=== PATIENT | male | born 1940 | race Caucasian/White ===

== ENCOUNTER → 2018-01-08 13:28 | Outpatient (CLI) | payer MEDICARE, SELFPAY ==
--- NOTE | 2018-01-09 16:29 | DI.NM.S_ITS ---
DATE OF SERVICE: 01/08/2018 ORDERING PHYSICIAN: Vikas Mills MD PROCEDURE: Nuclear cardiac stress study. INDICATIONS: This is a 77-year-old gentleman with a remote history of coronary bypass graft surgery and chronic atrial fibrillation being considered for surgery. Nuclear cardiac stress study is performed to for cardiac risk assessment and to evaluate for significant recurrent ischemia. STRESS TEST: This gentleman was exercised according to a regular [place] protocol exercising for 2 minutes and 11 seconds stopping due to symptoms of fatigue without symptoms of chest pain or discomfort. Baseline EKG showed atrial fibrillation. He had a fairly rapid heart rate response to the atrial fibrillation with peak heart rate of 154 beats per minute and had a normal blood pressure response to exercise. He did not have significant ST segment abnormalities or anginal symptoms. Functional aerobic impairment is +65% for an active male. PROCEDURE: This patient received 25.7 mCi of technetium-99 Myoview for the stress portion of the examination. He was brought back 1 day later for the resting portion of the examination receiving an additional 26.5 mEq. FINDINGS: Raw Data: Raw data images demonstrate overall good image quality. No significant source of artifact or interference noted. Quantitative Gated SPECT Imaging: Gating was achieved but overall accuracy of the gated images is reduced because of the patient's atrial fibrillation and significant irregularity. The computer estimated end-diastolic volume is 132 cc with an estimated ejection of 48% but again the presence of atrial fibrillation and significant R-R variability reduces the specificity of this finding. Quantitative Perfusion SPECT Imaging: Stress myocardial perfusion imaging shows a moderate amount of diaphragmatic attenuation in addition to a moderate area of hypoperfusion involving the mid and distal anteroseptal wall and apex. The resting images show improvement in this region but a persistent mid anteroseptal wall perfusion abnormality and subtle apical defect remain. Prone imaging suggests a similar picture to the stress imaging and to suggest the presence of probable nontransmural infarction in the mid LAD territory and perhaps a subtle amount in the apex with a modest amount of reversible ischemia in the distal LAD territory. Prone imaging shows improvement but some persistent perfusion abnormality involving the inferior wall suggesting the possibility of a subtle degree of ischemia involving the right coronary territory as well. IMPRESSION: Abnormal nuclear cardiac stress study. A. Poor exercise capacity without anginal chest discomfort for EKG changes of ischemia. B. Suboptimal gated images because of atrial fibrillation. C. Subtle persistent perfusion abnormalities involving the mid anteroseptal wall suggesting nontransmural scar, possibly at the apex as well, with modest amount of reversible ischemia suggested in the distal left anterior descending (LAD) territory and in the distribution of the right coronary as well. Clinical correlation is suggested. Theodore Burgess - RANJEET/adelfo/ doc#: [id number]/job#: [id number] dd: 01/09/2018 13:26:00 dt: 01/09/2018 16:12:00 DICTATING MD/COPIES TO: Phil Rodriges MD COPIES MNE: MAI
== END ==
PROVIDERS: Family Provider Physician Assistant; PCP Physician Assistant; Visit Provider Internal Medicine Cardiovascular Disease
DX: I48.2 Chronic atrial fibrillation (principal); Z95.1 Presence of aortocoronary bypass graft
CPT/HCPCS: 78452; 93016; 93017; 93018; A9502

== ENCOUNTER → 2018-01-09 08:01 | Outpatient (CLI) | payer MEDICARE, SELFPAY ==
--- NOTE | 2018-01-09 | DI.ECHO.S_ITS ---
[place] [facility]---------+ [facility] +---------+ : : [address] : : : : [id number] : : : : Phone: [phone]+ Echocardiogram Report + + :Name: EUGENIA KRISHNA Study Date: 01/09/2018 Height: 73 in : :[facility] Weight: 253 lb : : Gender: Male BSA: 2.4 m2 : :: 1940 Age: 77 yrs BP: 114/62 mmHg: :Reason For Study: Atrial fibrillation : :Ordering Physician: Vikas Fernandez : :Lina Performed By: Demetria Hall : :Referring: AGUSTIN Guthrie : + + Interpretation Summary 1) Mildly enlarged left ventricle with moderately reduced function (EF 35- 40%). 2) Grossly normal right ventricular size with mildly reduced function. 3) The left atrium is moderately dilated. The right atrium is moderate to severely dilated. 4) There is mild to moderate mitral regurgitation. 5) Normal pulmonary artery pressures. 6) No prior Echo available for comparison. Procedure: A two-dimensional transthoracic echocardiogram with color flow and Doppler was performed. The study quality was technically adequate. There is no prior echocardiogram noted for this patient. The patient was in atrial fibrillation with heart rates between 83-96 bpm during the exam. Left Ventricle: The left ventricle is mildly dilated. Left ventricular wall thickness is at the upper limits of normal. The ejection fraction is estimated to be 35-40%. Left ventricular systolic function is moderately reduced. There is moderate global hypokinesis of the left ventricle. Diastolic function could not be accurately assessed due to atrial fibrillation. Right Ventricle: The right ventricle is grossly normal size. Right ventricular systolic function is mildly reduced. Atria: The left atrium is moderately dilated. The right atrium is moderate to severely dilated. The interatrial septum is intact with no evidence for an atrial septal defect. Mitral Valve: The mitral valve leaflets appear borderline thickened, but open well. There is mild to moderate mitral regurgitation. Aortic Valve: The aortic valve is trileaflet. The aortic valve opens well. There is no aortic valve stenosis. No aortic regurgitation is present. Tricuspid Valve: The tricuspid valve leaflets are thin and pliable. There is mild tricuspid regurgitation. The right ventricular systolic pressure is estimated at 25 mmHg assuming a right atrial pressure of 3 mm Hg. Pulmonic Valve: The pulmonic valve is normal in structure and function. There is no pulmonic valvular regurgitation. Great Vessels: The aortic root is normal size. The dimensions of the ascending aorta are normal. The IVC is of normal diameter and collapses greater than 50% with a sniff. This suggests a low right atrial pressure of 3 mm Hg. Pericardium/ Pleura There is no pericardial effusion. There is no pleural effusion. MMode/2D Measurements & Calculations LVIDd: 6.1 cm Ao root diam: 3.0 cm LVIDs: 4.4 cm Aortic Jxn: 2.4 cm FS: 27.3 % asc Aorta Diam: 3.5 cm EPSS: 1.4 cm Ao Arch Diam (Prox Trans): 2.5 cm IVSd: 0.93 cm LVPWd: 1.1 cm LV suggs. diameter/BSA (cm/m^2): 2.6 LV sys. diameter/BSA (cm/m^2): 1.9 LA dimension: 5.3 cm RA long axis: 6.1 cm LA A2 area: 26.6 cm2 RA area: 29.3 cm2 LA A4 area: 29.3 cm2 RA vol: 119.9 ml LA length (vol): 6.4 cm RA : 50.4 ml/m2 LA vol: 103.1 ml IVC diam: 1.7 cm LA vol index: 43.4 ml/m2 RVDd major: 5.5 cm RVD1 (basal): 3.7 cm RVD2 (mid): 3.1 cm TAPSE: 1.3 cm Doppler Measurements & Calculations Ao V2 max: 133.2 cm/sec Med Peak E' Arie: 7.6 cm/sec Ao V2 mean: 90.2 cm/sec Lat Peak E' Arie: 11.7 cm/sec Ao max P.1 mmHg MV P1/2t: 54.7 msec Ao mean P.7 mmHg MR ERO: 0.21 cm2 Ao V2 VTI: 29.0 cm TR max arie: 235.9 cm/sec MV V2 mean: 42.9 cm/sec TR max P.3 mmHg MV mean P.93 mmHg PA V2 max: 95.6 cm/sec MV V2 VTI: 17.1 cm PA V2 mean: 56.6 cm/sec PA mean P.7 mmHg PA Accel Time: 0.13 sec MV P1/2t max arie: 87.3 cm/sec MR flow rate: 83.5 cm3/sec MVA(P1/2t): 4.0 cm2 MR LOWRY radius: 0.59 cm Reading Physician:03:49 PM
== END ==
PROVIDERS: Family Provider Physician Assistant; PCP Physician Assistant; Visit Provider Internal Medicine Cardiovascular Disease
DX: I48.91 Unspecified atrial fibrillation (principal)
CPT/HCPCS: 93306

== ENCOUNTER → 2018-03-27 09:03 | Outpatient (CLI) | payer MEDICARE, SELFPAY ==
--- NOTE | 2018-03-27 | DI.RAD.S_ITS ---
PROCEDURE: XR CHEST 2V INDICATIONS: WHEEZING TECHNIQUE: 2 views of the chest were acquired. COMPARISON: [facility], , CHEST 2 VIEW, 09/25/2006, 18:10. FINDINGS: Surgical changes and devices: Sternotomy wires and surgical clips. Lungs and pleura: No pleural effusions or pneumothorax. Lungs are clear. Mediastinum: Mediastinal contours are normal. Heart size is normal. Bones and chest wall: No suspicious bony abnormalities. Soft tissues appear unremarkable. IMPRESSION: No acute disease. Dictated by: Shelton Kebede M.D. on 03/27/2018 at 10:47 Approved by: Shelton Kebede M.D. on 03/27/2018 at 10:48
== END ==
PROVIDERS: Family Provider Physician Assistant; PCP Physician Assistant; Visit Provider Physician Assistant
DX: R06.2 Wheezing (principal)
CPT/HCPCS: 71046

== ENCOUNTER 2018-04-08 16:23 | Emergency (ER) | payer MEDICARE, SELFPAY ==
[2018-04-08] VITALS (9 sets, daily range): BP systolic 107–151; BP diastolic 55–73; PULSE 105–144; RESP 16–29; TEMP 37.4–38.8; O2SAT 94–97; BMI 38.7
--- NOTE | 2018-04-08 16:29 | DI.CT.S_ITS ---
PROCEDURE: CT HEAD/BRAIN WO CON INDICATIONS: confusion TECHNIQUE: Noncontrast 4.5 mm thick angled axial sections acquired from the foramen magnum to the vertex, with coronal and sagittal reformats. For radiation dose reduction, the following was used: automated exposure control, adjustment of mA and/or kV according to patient size. COMPARISON: [facility], MR, STROKE PROTOCOL, 11/03/2011, 10:11. [facility], CT, HEAD WITHOUT CONTRAST, 11/02/2011, 17:25. FINDINGS: Image quality: Excellent. CSF spaces: Basal cisterns are patent. No extra-axial fluid collections. There is mild cerebral volume loss, with resultant ventricular and sulcal prominence. Brain: No intracranial hemorrhage, mass, or mass effect. There are small areas of cortical encephalomalacia involving the left frontal and parietal lobes consistent with prior infarcts. These are new compared to the prior studies. A focal hypodensity in the left torres radiata is redemonstrated consistent with a prior lacunar infarct. There are subcortical, periventricular and deep white matter hypodensities consistent with mild chronic small vessel ischemic changes. There is intracranial internal carotid artery atherosclerosis. Skull and face: Calvarium and visualized facial bones appear intact, without suspicious lesions. Sinuses: Visualized sinuses demonstrate a smaller fluid level in the right maxillary sinus. Mastoid air cells are clear. IMPRESSION: 1. No definite acute intracranial abnormality. 2. Small regions of encephalomalacia involving the left frontal and parietal lobes consistent with prior infarcts. These are new compared to the prior studies. 3. Mild cerebral volume loss and chronic white matter small vessel ischemic changes. 4. Smaller fluid level in the right maxillary sinus suggestive of acute sinusitis. No definite fracture of the visualized sinus james but correlation is recommended with clinical history. Dictated by: Harpreet Garza M.D. on 04/08/2018 at 16:52 Approved by: Harpreet Garza M.D. on 04/08/2018 at 16:55
--- NOTE | 2018-04-08 16:29 | DI.RAD.S_ITS ---
PROCEDURE: XR CHEST 1V INDICATIONS: fever confusion TECHNIQUE: One view of the chest was acquired. COMPARISON: [facility], CR, XR CHEST 2V, 03/27/2018, 9:05. FINDINGS: Surgical changes and devices: Postsurgical and changes are redemonstrated in the mediastinum. Lungs and pleura: No pleural effusions or pneumothorax. Lungs are clear. Mediastinum: Mediastinal contours appear unchanged. Heart size is normal. Bones and chest wall: No suspicious bony lesions. Overlying soft tissues appear unremarkable. IMPRESSION: 1. No acute cardiopulmonary disease. Dictated by: Harpreet Garza M.D. on 04/08/2018 at 16:51 Approved by: Harpreet Garza M.D. on 04/08/2018 at 16:52
[2018-04-08 16:38] LABS: Add Manual Diff / Slide Review NO; Basophils Percent Auto 0.1 % (0-2); Eosinophils Percent Auto 0.7 % (2-4); Hematocrit 43.8 % (41-53); Hemoglobin 14.7 g/dL (13.5-17.5); Lymphocytes Percent Auto 2.6 % (25-40); Mean Corpuscular HGB Conc 33.6 % (30-36); Mean Corpuscular Hemoglobin 32.4 PG (26-34); Mean Corpuscular Volume 96.6 fL (80-100); Monocytes Percent Auto 2.5 % (3-14); Neutrophils Absolute Auto 18400 /uL (3000-5900); Neutrophils Percent Auto 94.1 % (50-75); Platelet Count 236 X10^3/uL (150-400); Red Blood Cell Count 4.53 X10^6/uL (4.5-5.9); Red Cell Distribution Width 13.9 % (11.6-14.8); White Blood Cell Count 19.6 X10^3/uL (4.5-11.0)
[2018-04-08 16:40] LABS: INR 1.4 (0.9-1.3); Prothrombin Time 15.3 SECONDS (10.1-12.7)
[2018-04-08 16:42] LABS: PTT Partial Thromboplastin Tim 45 SECONDS (26.4-36.2)
[2018-04-08] MEDS: ACETAMINOPHEN 325 MG TABLET 975 MG PO (17:21)
[2018-04-08] MEDS: SODIUM CHLORIDE 0.9% 1,000 ML 200 ML IV (17:22)
[2018-04-08] MEDS: METOPROLOL TARTRATE 5 MG/5 ML INJ IV ×2 (17:28→18:57)
[2018-04-08] MEDS: levoFLOXacin 750 MG/150 ML PIGGYBACK 100 MG IV (17:28)
[2018-04-08 17:33] LABS: Lactate (Lactic Acid) 2.9 mmol/L (0.7-2.1)
[2018-04-08 17:49] LABS: Procalcitonin 3.18 ng/mL (<0.5)
--- NOTE | 2018-04-08 17:51 | DI.CT.S_ITS ---
PROCEDURE: CT ABDOMEN PELVIS W CON INDICATIONS: vomiting TECHNIQUE: After the administration of intravenous contrast, 5 mm thick sections acquired from the diaphragm to the symphysis. 5 mm coronal and sagittal reformats were acquired. For radiation dose reduction, the following was used: automated exposure control, adjustment of mA and/or kV according to patient size. COMPARISON: None. FINDINGS: Image quality: Excellent. ABDOMEN: Lung bases: Lung bases are clear. Heart size is normal. Solid organs: Liver is normal in size and enhancement. Gallbladder appears mildly wall thickened near the gallbladder neck, and may contain gallstones.. Biliary system is non dilated. Pancreas enhances normally. Spleen is normal in size and enhancement. No adrenal nodules. Kidneys demonstrate normal size and enhancement, without hydronephrosis. Peritoneum and bowel: Bowel loops demonstrate normal wall thickness and caliber. No free fluid or air. Nodes and vessels: No retroperitoneal or mesenteric adenopathy by size criteria. Aorta and inferior vena cava are normal in size. Miscellaneous: No ventral hernias. PELVIS: Genitourinary: Bladder wall thickness is normal. Miscellaneous: No inguinal hernias or adenopathy. : Diverticulosis without acute diverticulitis. Bones: No suspicious bony lesions. No vertebral body compression fractures. IMPRESSION: Gallbladder wall thickening is present near the gallbladder neck, and a abdominal ultrasound has been scheduled that no more accurately assess area. Note is made of sigmoid colonic diverticulosis without acute diverticulitis. Dictated by: Vernon Capps M.D. on 04/08/2018 at 19:43 Approved by: Vernon Capps M.D. on 04/08/2018 at 19:44
--- NOTE | 2018-04-08 18:01 | ED_ITS ---
HPI - Fever <DO Yenny Powell Last Filed: 04/09/18 07:23> General Chief Complaint: Fever Stated Complaint: Fever,shaking and weak Time Seen by Provider: 04/08/18 16:28 Source: patient, family and EMS Mode of arrival: EMS Limitations: no limitations and altered mental status History of Present Illness HPI Narrative: Patient is a 78-year-old male who presents with sudden onset of confusion. states that he woke up this morning and was feeling fine he started to not feel well after lunch all lay down in woke up confused on shaking and fever of 103. He is febrile here in the ED of 102. He is confused and is a poor historian he has no complaints. states that [place] vomited once on the boat and he feels a little nauseous now. He has not had any cough. He is noted to be incontinent of urine has not noticed any increase in urinary frequency or urgency. He does have a history of atrial fibrillation currently in AFib with RVR MD complaint: fever and weakness Related Data Home Medications Medication Instructions Recorded Confirmed folic acid 1 tab PO DAILY #0 09/25/06 04/08/18 albuterol sulfate [Ventolin HFA] 2 puff INHALATION Q4-6H PRN 04/08/18 04/08/18 aspirin 81 mg PO DAILY 04/08/18 04/08/18 atenolol 25 mg PO DAILY 04/08/18 04/08/18 atorvastatin 10 mg PO BEDTIME 04/08/18 04/08/18 dabigatran etexilate [Pradaxa] 150 mg PO BID 04/08/18 04/08/18 digoxin 0.25 mg PO DAILY 04/08/18 04/08/18 glipizide 5 mg PO DAILY 04/08/18 04/08/18 insulin detemir U-100 [Levemir 20 units SUBCUT QAM 04/08/18 04/08/18 FlexTouch U-100 Insuln] losartan 50 mg PO BID 04/08/18 04/08/18 metformin 1,000 mg PO BID 04/08/18 04/08/18 Allergies Allergy/AdvReac Type Severity Reaction Status Date / Time No Known Drug Allergies Allergy Verified 04/08/18 17:16 Review of Systems <DO Yenny Powell Last Filed: 04/09/18 07:23> Review of Systems All systems reviewed & are unremarkable except as noted in HPI and below Constitutional Reports body ache(s), Reports fatigue and Reports fever(s) Eyes Reports blind spots, Denies blurry vision and Denies change in vision ENT Ears, Nose, Mouth, and Throat: Denies dental pain and Denies dizziness Cardiovascular Denies chest pain, Denies rapid heart rate, Denies leg edema and Denies dyspnea on exertion Respiratory Denies cough, Denies dyspnea on exertion and Denies wheezing Gastrointestinal Gastrointestinal: Denies abdominal pain, Reports nausea and Reports vomiting Genitourinary Reports urinary incontinence Musculoskeletal Denies back pain, Denies muscle weakness, Denies numbness and Denies tingling Integumentary/Breasts Denies pruritus, Denies erythema, Denies rash and Denies wounds Neurologic Denies dizziness, Denies focal weakness, Denies numbness, Denies tingling and Denies tremor(s) Endocrine Reports fatigue Allergic/Immunologic Denies wheezing Exam <Jennifer Anderson, DO - Last Filed: 04/09/18 07:23> Initial Vital Signs Initial Vital Signs: Vital Signs Temperature 99.4 F 04/08/18 16:15 Pulse Rate 144 H 04/08/18 16:15 Respiratory Rate 18 04/08/18 16:15 Blood Pressure 151/73 H 04/08/18 16:15 Pulse Oximetry 94 04/08/18 16:15 Const General: cooperative and ill appearing Nutritional Appearance: overweight Orientation: alert, awake and confused [facility] Head: normal to inspection, normocephalic, atraumatic and No abrasion Ears: hearing grossly normal bilaterally Nose: external nose normal Eyes General: appearance normal, both eyes and all related structures Neck Neck: normal visual inspection, full ROM, no meningeal signs and trachea midline Chest Chest: normal inspection of the chest Resp Effort & Inspection: normal respiratory effort and able to speak in complete sentences Auscultation: clear to auscultation bilaterally, no crackles, diminished lung sounds, no rales, no rhonchi and no wheezes Cardio Rate: tachycardic Rhythm: abnormal rhythm irregularly irregular Heart Sounds: S1 normal and S2 normal GI Palpation: soft, No firm, No rigid, No tender and No ascites Skin General: no rashes or lesions noted, No jaundice and No petechiae <Reggie iBshop, DO - Last Filed: 04/09/18 00:39> Initial Vital Signs Initial Vital Signs: Vital Signs Temperature 99.4 F 04/08/18 16:15 Pulse Rate 144 H 04/08/18 16:15 Respiratory Rate 18 04/08/18 16:15 Blood Pressure 151/73 H 04/08/18 16:15 Pulse Oximetry 94 04/08/18 16:15 Scores <Jennifer Anderson DO - Last Filed: 04/09/18 07:23> qSOFA Altered Mental Status (GCS <15): Yes Respiratory rate greater than/equal to 22: No Systolic blood pressure less than or equal to 100: No qSOFA Total: 1 0-1 Not High Risk 1-3 High risk SOFA SaO2/FIO2: 221-301 Platelets: >= 150 Bilirubin: 2.0-5.9 mg/dL Hypotension: MAP >= 70 mmHg Jun Coma Scale: 13-14 Renal: < 1.2 mg/dL SOFA Score: 4 Course <Jennifer Anderson DO - Last Filed: 04/09/18 07:23> Orders Ordered: Discontinued Medications Acetaminophen (Tylenol) 975 mg PO NOW ONE Stop: 04/08/18 17:12 Last Admin: 04/08/18 17:21 Dose: 975 mg Diltiazem HCl (Cardizem) 10 mg IV NOW ONE Stop: 04/08/18 20:59 Last Admin: 04/08/18 21:09 Dose: 10 mg Sodium Chloride (Normal Saline 0.9%) 1,000 mls @ 200 mls/hr IV CONT ISAIAH Last Infusion: 04/08/18 18:30 Dose: Admin: 04/08/18 17:22 Dose: 200 mls/hr Levofloxacin (Levaquin) 750 mg in 150 mls @ 100 mls/hr IV NOW ONE Stop: 04/08/18 18:50 Last Infusion: 04/08/18 20:00 Dose: 0 mls/hr Admin: 04/08/18 17:28 Dose: 100 mls/hr Sodium Chloride (Normal Saline 0.9%) 1,000 mls @ 1,000 mls/hr IV BOLUS ONE Stop: 04/08/18 19:48 Last Infusion: 04/08/18 20:33 Dose: 0 mls/hr Admin: 04/08/18 18:57 Dose: 1,000 mls/hr Imipenem/Cilastatin Sodium 500 (mg/ Sodium Chloride) 100 mls @ 200 mls/hr IV NOW ONE Stop: 04/08/18 20:58 Last Infusion: 04/08/18 21:52 Dose: 0 mls/hr Admin: 04/08/18 21:09 Dose: 200 mls/hr Metoprolol Tartrate (Lopressor) 5 mg IV NOW ONE Stop: 04/08/18 17:21 Last Admin: 04/08/18 17:28 Dose: 5 mg Metoprolol Tartrate (Lopressor) 5 mg IV NOW ONE Stop: 04/08/18 18:38 Last Admin: 04/08/18 18:57 Dose: 5 mg Vital Signs - 8 hr 04/08/18 17:47 04/08/18 18:26 04/08/18 19:03 Temperature 101.9 F H Pulse Rate 117 H 116 H Respiratory Rate 16 26 H Blood Pressure Blood Pressure [Left Arm] 129/66 110/66 Pulse Oximetry 94 94 04/08/18 20:13 04/08/18 21:09 04/08/18 21:42 Temperature 101.9 F H Pulse Rate 124 H 124 H 124 H Respiratory Rate 29 H 29 H Blood Pressure 107/72 107/72 Blood Pressure [Left Arm] 119/55 L Pulse Oximetry 96 96 04/08/18 21:58 04/08/18 22:36 Temperature Pulse Rate 105 H 105 H Respiratory Rate 22 25 H Blood Pressure 124/69 Blood Pressure [Left Arm] 109/61 Pulse Oximetry 95 97 <Reggie Bishop DO - Last Filed: 04/09/18 00:39> Orders Ordered: Discontinued Medications Acetaminophen (Tylenol) 975 mg PO NOW ONE Stop: 04/08/18 17:12 Last Admin: 04/08/18 17:21 Dose: 975 mg Diltiazem HCl (Cardizem) 10 mg IV NOW ONE Stop: 04/08/18 20:59 Last Admin: 04/08/18 21:09 Dose: 10 mg Sodium Chloride (Normal Saline 0.9%) 1,000 mls @ 200 mls/hr IV CONT ISAIAH Last Infusion: 04/08/18 18:30 Dose: Admin: 04/08/18 17:22 Dose: 200 mls/hr Levofloxacin (Levaquin) 750 mg in 150 mls @ 100 mls/hr IV NOW ONE Stop: 04/08/18 18:50 Last Infusion: 04/08/18 20:00 Dose: 0 mls/hr Admin: 04/08/18 17:28 Dose: 100 mls/hr Sodium Chloride (Normal Saline 0.9%) 1,000 mls @ 1,000 mls/hr IV BOLUS ONE Stop: 04/08/18 19:48 Last Infusion: 04/08/18 20:33 Dose: 0 mls/hr Admin: 04/08/18 18:57 Dose: 1,000 mls/hr Imipenem/Cilastatin Sodium 500 (mg/ Sodium Chloride) 100 mls @ 200 mls/hr IV NOW ONE Stop: 04/08/18 20:58 Last Infusion: 04/08/18 21:52 Dose: 0 mls/hr Admin: 04/08/18 21:09 Dose: 200 mls/hr Metoprolol Tartrate (Lopressor) 5 mg IV NOW ONE Stop: 04/08/18 17:21 Last Admin: 04/08/18 17:28 Dose: 5 mg Metoprolol Tartrate (Lopressor) 5 mg IV NOW ONE Stop: 04/08/18 18:38 Last Admin: 04/08/18 18:57 Dose: 5 mg Reevaluation(s) Reevaluation #1: I have received sign-out from Dr. Anderson and perform my own physical exam and interview. This falls in line with the work done by Dr. Anderson. The patient continues to have no sense of palpitations, chest pain or shortness of breath. He is not dizzy nor weak or lightheaded. His symptoms started today. He has no pain nor nausea or vomiting. Awaiting ultrasound results prior to call to General surgery Consultations Consultation #1: upon receipt of normal US I placed a call to our surgeon, Dr. Knight, whom shares opinion that patient is too ill for this facility and may have ascending cholangitis. Added Primaxin to ABX, Call placed to [facility]. No bed. Call to . Dr. Lopes is happy to accept patient to their progressive care unit. No need to continue to treat rapid Afib currently, will allow it to play out with fluids, abx. Please send patient to ED. Vital Signs - 8 hr 04/08/18 17:47 04/08/18 18:26 04/08/18 19:03 Temperature 101.9 F H Pulse Rate 117 H 116 H Respiratory Rate 16 26 H Blood Pressure Blood Pressure [Left Arm] 129/66 110/66 Pulse Oximetry 94 94 04/08/18 20:13 04/08/18 21:09 04/08/18 21:42 Temperature 101.9 F H Pulse Rate 124 H 124 H 124 H Respiratory Rate 29 H 29 H Blood Pressure 107/72 107/72 Blood Pressure [Left Arm] 119/55 L Pulse Oximetry 96 96 04/08/18 21:58 04/08/18 22:36 Temperature Pulse Rate 105 H 105 H Respiratory Rate 22 25 H Blood Pressure 124/69 Blood Pressure [Left Arm] 109/61 Pulse Oximetry 95 97 MDM - Fever <Jennifer Anderson DO - Last Filed: 04/09/18 07:23> Medical Records Attestation: I reviewed the patient's medical records. Lab Data Attestation: I reviewed the patient's lab results. Result diagrams: 04/08/18 Unknown 04/08/18 17:07 Lab Results 04/08/18 04/08/18 04/08/18 Range/Units 17:07 17:07 21:17 WBC (4.5-11.0) X10^3/uL RBC (4.5-5.9) X10^6/uL Hgb (13.5-17.5) g/dL Hct (41-53) % MCV (80-100) fL MCH (26-34) PG MCHC (30-36) % RDW (11.6-14.8) % Plt Count (150-400) X10^3/uL Neut % (Auto) (50-75) % Lymph % (Auto) (25-40) % [place] % (Auto) (3-14) % Eos % (Auto) (2-4) % Baso % (Auto) (0-2) % Neut # (Auto) (1421-0082) /uL PT (10.1-12.7) SECONDS INR (0.9-1.3) APTT (26.4-36.2) SECONDS Sodium 144 (137-145) mmol/L Potassium 4.4 (3.4-5.1) mmol/L Chloride 100 (98-107) mmol/L Carbon Dioxide 24 (22-32) mmol/L BUN 20 (9-20) mg/dL Creatinine 1.10 (0.66-1.25) mg/dL Estimated GFR > 60.0 (>60) mL/min BUN/Creatinine Ratio 18.2 (6-22) Glucose 148 H (80-110) mg/dL Lactate 2.9 H 3.0 H (0.7-2.1) mmol/L Calcium 9.6 (8.4-10.2) mg/dL Total Bilirubin 2.8 H (0.2-1.3) mg/dL AST 379 H (17-59) IU/L ALT 216 H (21-72) IU/L Alkaline Phosphatase 96 (38-126) U/L Lactate Dehydrogenase (313-618) U/L Total Protein 7.7 (6.3-8.2) g/dL Albumin 4.4 (3.5-5.0) g/dL Globulin 3.3 (1.7-4.1) g/dL Albumin/Globulin Ratio 1.3 (1.0-2.8) Lipase (23-300) U/L Procalcitonin (<0.5) ng/mL 04/08/18 04/08/18 04/08/18 Range/Units Unknown Unknown Unknown WBC 19.6 H (4.5-11.0) X10^3/uL RBC 4.53 (4.5-5.9) X10^6/uL Hgb 14.7 (13.5-17.5) g/dL Hct 43.8 (41-53) % MCV 96.6 (80-100) fL MCH 32.4 (26-34) PG MCHC 33.6 (30-36) % RDW 13.9 (11.6-14.8) % Plt Count 236 (150-400) X10^3/uL Neut % (Auto) 94.1 H (50-75) % Lymph % (Auto) 2.6 L (25-40) % [place] % (Auto) 2.5 L (3-14) % Eos % (Auto) 0.7 L (2-4) % Baso % (Auto) 0.1 (0-2) % Neut # (Auto) 04657 H (7533-1408) /uL PT 15.3 H (10.1-12.7) SECONDS INR 1.4 H (0.9-1.3) APTT 45 H (26.4-36.2) SECONDS Sodium (137-145) mmol/L Potassium (3.4-5.1) mmol/L Chloride (98-107) mmol/L Carbon Dioxide (22-32) mmol/L BUN (9-20) mg/dL Creatinine (0.66-1.25) mg/dL Estimated GFR (>60) mL/min BUN/Creatinine Ratio (6-22) Glucose (80-110) mg/dL Lactate (0.7-2.1) mmol/L Calcium (8.4-10.2) mg/dL Total Bilirubin (0.2-1.3) mg/dL AST (17-59) IU/L ALT (21-72) IU/L Alkaline Phosphatase (38-126) U/L Lactate Dehydrogenase (313-618) U/L Total Protein (6.3-8.2) g/dL Albumin (3.5-5.0) g/dL Globulin (1.7-4.1) g/dL Albumin/Globulin Ratio (1.0-2.8) Lipase (23-300) U/L Procalcitonin 3.18 H (<0.5) ng/mL 04/08/18 Range/Units Unknown WBC (4.5-11.0) X10^3/uL RBC (4.5-5.9) X10^6/uL Hgb (13.5-17.5) g/dL Hct (41-53) % MCV (80-100) fL MCH (26-34) PG MCHC (30-36) % RDW (11.6-14.8) % Plt Count (150-400) X10^3/uL Neut % (Auto) (50-75) % Lymph % (Auto) (25-40) % [place] % (Auto) (3-14) % Eos % (Auto) (2-4) % Baso % (Auto) (0-2) % Neut # (Auto) (8496-7168) /uL PT (10.1-12.7) SECONDS INR (0.9-1.3) APTT (26.4-36.2) SECONDS Sodium (137-145) mmol/L Potassium (3.4-5.1) mmol/L Chloride (98-107) mmol/L Carbon Dioxide (22-32) mmol/L BUN (9-20) mg/dL Creatinine (0.66-1.25) mg/dL Estimated GFR (>60) mL/min BUN/Creatinine Ratio (6-22) Glucose (80-110) mg/dL Lactate (0.7-2.1) mmol/L Calcium (8.4-10.2) mg/dL Total Bilirubin (0.2-1.3) mg/dL AST (17-59) IU/L ALT (21-72) IU/L Alkaline Phosphatase (38-126) U/L Lactate Dehydrogenase 1075 H (313-618) U/L Total Protein (6.3-8.2) g/dL Albumin (3.5-5.0) g/dL Globulin (1.7-4.1) g/dL Albumin/Globulin Ratio (1.0-2.8) Lipase 183 (23-300) U/L Procalcitonin (<0.5) ng/mL Urine Dip Bedside Urine Glucose Negative Bedside Urine Bilirubin - Negative Bedside Urine Ketone - Negative Urine Specific [place] 1.015 Bedside Urine Occult Blood - Negative Bedside Urine pH 6.5 Bedside Urine Protein - Negative Bedside Urine Urobilinogen - Negative Bedside Urine Nitrite - Negative Bedside Urine Leukocytes - Negative Esterase Imaging Data Chest x-ray: Radiologist's impression: PROCEDURE: XR CHEST 1V INDICATIONS: fever confusion TECHNIQUE: One view of the chest was acquired. COMPARISON: [facility], , XR CHEST 2V, 03/27/2018, 9:05. FINDINGS: Surgical changes and devices: Postsurgical and changes are redemonstrated in the mediastinum. Lungs and pleura: No pleural effusions or pneumothorax. Lungs are clear. Mediastinum: Mediastinal contours appear unchanged. Heart size is normal. Bones and chest wall: No suspicious bony lesions. Overlying soft tissues appear unremarkable. IMPRESSION: 1. No acute cardiopulmonary disease. Dictated by: Harpreet Garza M.D. on 04/08/2018 at 16:51 Approved by: Harpreet Garza M.D. on 04/08/2018 at 16:52 CT scan - head: Radiologist's impression: PROCEDURE: CT HEAD/BRAIN WO CON INDICATIONS: confusion TECHNIQUE: Noncontrast 4.5 mm thick angled axial sections acquired from the foramen magnum to the vertex, with coronal and sagittal reformats. For radiation dose reduction, the following was used: automated exposure control, adjustment of mA and/or kV according to patient size. COMPARISON: [facility], MR, STROKE PROTOCOL, 11/03/2011, 10:11. [facility], CT, HEAD WITHOUT CONTRAST, 11/02/2011, 17:25. FINDINGS: Image quality: Excellent. CSF spaces: Basal cisterns are patent. No extra-axial fluid collections. There is mild cerebral volume loss, with resultant ventricular and sulcal prominence. Brain: No intracranial hemorrhage, mass, or mass effect. There are small areas of cortical encephalomalacia involving the left frontal and parietal lobes consistent with prior infarcts. These are new compared to the prior studies. A focal hypodensity in the left torres radiata is redemonstrated consistent with a prior lacunar infarct. There are subcortical, periventricular and deep white matter hypodensities consistent with mild chronic small vessel ischemic changes. There is intracranial internal carotid artery atherosclerosis. Skull and face: Calvarium and visualized facial bones appear intact, without suspicious lesions. Sinuses: Visualized sinuses demonstrate a smaller fluid level in the right maxillary sinus. Mastoid air cells are clear. IMPRESSION: 1. No definite acute intracranial abnormality. 2. Small regions of encephalomalacia involving the left frontal and parietal lobes consistent with prior infarcts. These are new compared to the prior studies. 3. Mild cerebral volume loss and chronic white matter small vessel ischemic changes. 4. Smaller fluid level in the right maxillary sinus suggestive of acute sinusitis. No definite fracture of the visualized sinus james but correlation is recommended with clinical history. Dictated by: Harpreet Garza M.D. on 04/08/2018 at 16:52 ECG Data Attestation: I personally reviewed and interpreted this ECG as follows: Prior ECG tracings: available for review Interpretation: AFib with RVR rate 140 is previous EKG from 2012 also shows AFib today no ST changes MDM Narrative Medical decision making narrative: Patient is septic. He is febrile with an elevated lactic an elevated procalcitonin. Urine dip is clean lungs are clear an x-ray is negative. He is having some nausea and vomiting but abdomen is is soft. Will add CT abdomen. He is moving his head and neck not complaining of a headache does not have meningeal signs The abdomen is reexamined he is nontender. Liver enzymes and bilirubin are noted to be elevated. Will also get an ultrasound. Signed out to Dr. Bishop pending CT pending ultrasound possible transfer may need ERCP. <Reggie Bishop, - Last Filed: 04/09/18 00:39> Differential Diagnosis Likely fever of unknown origin, gastroenteritis, community acquired pneumonia, pyelonephritis, viral infection and sepsis Medical Records Attestation: I reviewed the patient's medical records. Lab Data Attestation: I reviewed the patient's lab results. Lab Results 04/08/18 04/08/18 04/08/18 Range/Units 17:07 17:07 21:17 WBC (4.5-11.0) X10^3/uL RBC (4.5-5.9) X10^6/uL Hgb (13.5-17.5) g/dL Hct (41-53) % MCV (80-100) fL MCH (26-34) PG MCHC (30-36) % RDW (11.6-14.8) % Plt Count (150-400) X10^3/uL Neut % (Auto) (50-75) % Lymph % (Auto) (25-40) % [place] % (Auto) (3-14) % Eos % (Auto) (2-4) % Baso % (Auto) (0-2) % Neut # (Auto) (1582-7594) /uL PT (10.1-12.7) SECONDS INR (0.9-1.3) APTT (26.4-36.2) SECONDS Sodium 144 (137-145) mmol/L Potassium 4.4 (3.4-5.1) mmol/L Chloride 100 (98-107) mmol/L Carbon Dioxide 24 (22-32) mmol/L BUN 20 (9-20) mg/dL Creatinine 1.10 (0.66-1.25) mg/dL Estimated GFR > 60.0 (>60) mL/min BUN/Creatinine Ratio 18.2 (6-22) Glucose 148 H (80-110) mg/dL Lactate 2.9 H 3.0 H (0.7-2.1) mmol/L Calcium 9.6 (8.4-10.2) mg/dL Total Bilirubin 2.8 H (0.2-1.3) mg/dL AST 379 H (17-59) IU/L ALT 216 H (21-72) IU/L Alkaline Phosphatase 96 (38-126) U/L Lactate Dehydrogenase (313-618) U/L Total Protein 7.7 (6.3-8.2) g/dL Albumin 4.4 (3.5-5.0) g/dL Globulin 3.3 (1.7-4.1) g/dL Albumin/Globulin Ratio 1.3 (1.0-2.8) Lipase (23-300) U/L Procalcitonin (<0.5) ng/mL 04/08/18 04/08/18 04/08/18 Range/Units Unknown Unknown Unknown WBC 19.6 H (4.5-11.0) X10^3/uL RBC 4.53 (4.5-5.9) X10^6/uL Hgb 14.7 (13.5-17.5) g/dL Hct 43.8 (41-53) % MCV 96.6 (80-100) fL MCH 32.4 (26-34) PG MCHC 33.6 (30-36) % RDW 13.9 (11.6-14.8) % Plt Count 236 (150-400) X10^3/uL Neut % (Auto) 94.1 H (50-75) % Lymph % (Auto) 2.6 L (25-40) % [place] % (Auto) 2.5 L (3-14) % Eos % (Auto) 0.7 L (2-4) % Baso % (Auto) 0.1 (0-2) % Neut # (Auto) 62882 H (8888-1697) /uL PT 15.3 H (10.1-12.7) SECONDS INR 1.4 H (0.9-1.3) APTT 45 H (26.4-36.2) SECONDS Sodium (137-145) mmol/L Potassium (3.4-5.1) mmol/L Chloride (98-107) mmol/L Carbon Dioxide (22-32) mmol/L BUN (9-20) mg/dL Creatinine (0.66-1.25) mg/dL Estimated GFR (>60) mL/min BUN/Creatinine Ratio (6-22) Glucose (80-110) mg/dL Lactate (0.7-2.1) mmol/L Calcium (8.4-10.2) mg/dL Total Bilirubin (0.2-1.3) mg/dL AST (17-59) IU/L ALT (21-72) IU/L Alkaline Phosphatase (38-126) U/L Lactate Dehydrogenase (313-618) U/L Total Protein (6.3-8.2) g/dL Albumin (3.5-5.0) g/dL Globulin (1.7-4.1) g/dL Albumin/Globulin Ratio (1.0-2.8) Lipase (23-300) U/L Procalcitonin 3.18 H (<0.5) ng/mL 04/08/18 Range/Units Unknown WBC (4.5-11.0) X10^3/uL RBC (4.5-5.9) X10^6/uL Hgb (13.5-17.5) g/dL Hct (41-53) % MCV (80-100) fL MCH (26-34) PG MCHC (30-36) % RDW (11.6-14.8) % Plt Count (150-400) X10^3/uL Neut % (Auto) (50-75) % Lymph % (Auto) (25-40) % [place] % (Auto) (3-14) % Eos % (Auto) (2-4) % Baso % (Auto) (0-2) % Neut # (Auto) (6263-5529) /uL PT (10.1-12.7) SECONDS INR (0.9-1.3) APTT (26.4-36.2) SECONDS Sodium (137-145) mmol/L Potassium (3.4-5.1) mmol/L Chloride (98-107) mmol/L Carbon Dioxide (22-32) mmol/L BUN (9-20) mg/dL Creatinine (0.66-1.25) mg/dL Estimated GFR (>60) mL/min BUN/Creatinine Ratio (6-22) Glucose (80-110) mg/dL Lactate (0.7-2.1) mmol/L Calcium (8.4-10.2) mg/dL Total Bilirubin (0.2-1.3) mg/dL AST (17-59) IU/L ALT (21-72) IU/L Alkaline Phosphatase (38-126) U/L Lactate Dehydrogenase 1075 H (313-618) U/L Total Protein (6.3-8.2) g/dL Albumin (3.5-5.0) g/dL Globulin (1.7-4.1) g/dL Albumin/Globulin Ratio (1.0-2.8) Lipase 183 (23-300) U/L Procalcitonin (<0.5) ng/mL Urine Dip Bedside Urine Glucose Negative Bedside Urine Bilirubin - Negative Bedside Urine Ketone - Negative Urine Specific [place] 1.015 Bedside Urine Occult Blood - Negative Bedside Urine pH 6.5 Bedside Urine Protein - Negative Bedside Urine Urobilinogen - Negative Bedside Urine Nitrite - Negative Bedside Urine Leukocytes - Negative Esterase Imaging Data US - abdomen: Radiologist's impression: [address] [address] Ultrasound Report Signed Patient: Theodore Burgess R#: [id number] : 2Acct:[id number] Age/Sex: 78 / MDate of Service: 04/08/18 Loc: ED Accession Number: [id number] Procedure: US abdomen complete Ordering Provider: Reggie Bishop D.O. PROCEDURE: US ABDOMEN COMPLETE INDICATIONS: SEPTIC; ELEVATED LFTS, BILIRUBIN TECHNIQUE: Real-time scanning was performed of the abdominal and retroperitoneal organs, with image documentation. COMPARISON: None. FINDINGS: Liver: Liver is normal in size and homogeneous in echotexture, mildly hyperechoic consistent infiltration. Gallbladder: The gallbladder appears normal. Biliary ducts: Intrahepatic bile ducts are non-dilated. Extrahepatic bile duct caliber measures 5.3 mm. Normal is 6-7 mm or less in diameter, or 10 mm or less post-cholecystectomy. Pancreas: Visualized portions of the pancreas are sonographically normal. Spleen: Spleen is normal in size and homogeneous in echotexture. Kidneys: Kidneys are normal in size and echotexture. Right kidney measures 12.5 cm long; left kidney measures 11.3 cm long. No hydronephrosis or nephrolithiasis. No solid masses. Aorta: Visualized aorta is normal in caliber at less than 3 cm. Iliacs: Proximal common iliac arteries are normal in caliber at less than 2.5 cm. IVC: Intrahepatic inferior vena cava is patent. Miscellaneous: No free abdominal fluid. IMPRESSION: Mild fatty infiltration throughout the liver. No evidence for gallstones or biliary obstruction. No sign of acute cholecystitis. Dictated by: Vernon Capps M.D. on 04/08/2018 at 20:42 Approved by: Vernon Capps M.D. on 04/08/2018 at 20:43 CT scan - abdomen: Radiologist's impression: [place] [address] CT Scan Report Signed Patient: Theodore Burgess R#: [id number] : 2Acct:[id number] Age/Sex: 78 / MDate of Service: 04/08/18 Loc: ED Accession Number: [id number] Procedure: CT abdomen pelvis w con Ordering Provider: Jennifer Anderson D.O. PROCEDURE: CT ABDOMEN PELVIS W CON INDICATIONS: vomiting TECHNIQUE: After the administration of intravenous contrast, 5 mm thick sections acquired from the diaphragm to the symphysis. 5 mm coronal and sagittal reformats were acquired. For radiation dose reduction, the following was used: automated exposure control, adjustment of mA and/or kV according to patient size. COMPARISON: None. FINDINGS: Image quality: Excellent. ABDOMEN: Lung bases: Lung bases are clear. Heart size is normal. Solid organs: Liver is normal in size and enhancement. Gallbladder appears mildly wall thickened near the gallbladder neck, and may contain gallstones.. Biliary system is non dilated. Pancreas enhances normally. Spleen is normal in size and enhancement. No adrenal nodules. Kidneys demonstrate normal size and enhancement, without hydronephrosis. Peritoneum and bowel: Bowel loops demonstrate normal wall thickness and caliber. No free fluid or air. Nodes and vessels: No retroperitoneal or mesenteric adenopathy by size criteria. Aorta and inferior vena cava are normal in size. Miscellaneous: No ventral hernias. PELVIS: Genitourinary: Bladder wall thickness is normal. Miscellaneous: No inguinal hernias or adenopathy. : Diverticulosis without acute diverticulitis. Bones: No suspicious bony lesions. No vertebral body compression fractures. IMPRESSION: Gallbladder wall thickening is present near the gallbladder neck, and a abdominal ultrasound has been scheduled that no more accurately assess area. Note is made of sigmoid colonic diverticulosis without acute diverticulitis. Dictated by: Vernon Capps M.D. on 04/08/2018 at 19:43 Approved by: Vernon Capps M.D. on 04/08/2018 at 19:44 Discharge Plan Departure Patient Disposition: [facility] Clinical Impression: Ascending cholangitis, Sepsis Discharge Date/Time: 04/08/18 23:14 Interventions: ED Discharge Assessment Last Done: 04/08/18 21:58 Prescriptions: No Action folic acid 1 tab PO DAILY Qty: 0 RF: 0 losartan 50 mg tablet 50 mg PO BID RF: 0 metformin 500 mg tablet 1,000 mg PO BID RF: 0 atorvastatin 10 mg tablet 10 mg PO BEDTIME RF: 0 glipizide 10 mg tablet extended release 24hr 5 mg PO DAILY RF: 0 digoxin 250 mcg tablet 0.25 mg PO DAILY RF: 0 albuterol sulfate [Ventolin HFA] 90 mcg/actuation HFA aerosol inhaler 2 puff Inhalation Q4-6H PRN (Reason: Shortness Of Breath) RF: 0 atenolol 50 mg tablet 25 mg PO DAILY RF: 0 insulin detemir U-100 [Levemir FlexTouch U-100 Insuln] 100 unit/mL (3 mL) insulin pen 20 units subcut QAM RF: 0 dabigatran etexilate [Pradaxa] 150 mg capsule 150 mg PO BID RF: 0 aspirin 81 mg Tablet,Delayed Release (Dr/Ec) 81 mg PO DAILY RF: 0 Referrals: Mary Beth Guthrie PA-C [Primary Care Provider] -
[2018-04-08 18:34] LABS: Alanine Aminotransferase 216 IU/L (21-72); Albumin 4.4 g/dL (3.5-5.0); Albumin Globulin Ratio 1.3 (1.0-2.8); Alkaline Phosphatase 96 U/L (38-126); Aspartate Aminotransferase 379 IU/L (17-59); BUN Creatinine Ratio 18.2 (6-22); Bilirubin Total 2.8 mg/dL (0.2-1.3); Blood Urea Nitrogen 20 mg/dL (9-20); Calcium 9.6 mg/dL (8.4-10.2); Carbon Dioxide 24 mmol/L (22-32); Chloride 100 mmol/L (98-107); Estimated Glomerular Filt Rate > 60.0 mL/min (>60); Globulin 3.3 g/dL (1.7-4.1); Glucose 148 mg/dL (80-110); HEMOLYSIS < 15 (0-50); Potassium 4.4 mmol/L (3.4-5.1); Sodium 144 mmol/L (137-145); Total Protein 7.7 g/dL (6.3-8.2)
--- NOTE | 2018-04-08 18:43 | DI.US.S_ITS ---
PROCEDURE: US ABDOMEN COMPLETE INDICATIONS: SEPTIC; ELEVATED LFTS, BILIRUBIN TECHNIQUE: Real-time scanning was performed of the abdominal and retroperitoneal organs, with image documentation. COMPARISON: None. FINDINGS: Liver: Liver is normal in size and homogeneous in echotexture, mildly hyperechoic consistent infiltration. Gallbladder: The gallbladder appears normal. Biliary ducts: Intrahepatic bile ducts are non-dilated. Extrahepatic bile duct caliber measures 5.3 mm. Normal is 6-7 mm or less in diameter, or 10 mm or less post-cholecystectomy. Pancreas: Visualized portions of the pancreas are sonographically normal. Spleen: Spleen is normal in size and homogeneous in echotexture. Kidneys: Kidneys are normal in size and echotexture. Right kidney measures 12.5 cm long; left kidney measures 11.3 cm long. No hydronephrosis or nephrolithiasis. No solid masses. Aorta: Visualized aorta is normal in caliber at less than 3 cm. Iliacs: Proximal common iliac arteries are normal in caliber at less than 2.5 cm. IVC: Intrahepatic inferior vena cava is patent. Miscellaneous: No free abdominal fluid. IMPRESSION: Mild fatty infiltration throughout the liver. No evidence for gallstones or biliary obstruction. No sign of acute cholecystitis. Dictated by: Vernon Capps M.D. on 04/08/2018 at 20:42 Approved by: Vernon Capps M.D. on 04/08/2018 at 20:43
[2018-04-08] MEDS: SODIUM CHLORIDE 0.9% 1,000 ML 1000 ML IV (18:57)
[2018-04-08 19:00] LABS: Lactate Dehydrogenase 1075 U/L (313-618); Lipase 183 U/L (23-300)
--- NOTE | 2018-04-08 19:41 | PC.NURSE ---
per pt having fever today, with episodes of very confused, vomiting, and shaking. pt denies pain.
[2018-04-08] MEDS: IMIPENEM/CILASTATIN 500 MG in SODIUM CHLORIDE 0.9% 100 ML 200 ML IV (21:09)
[2018-04-08] MEDS: dilTIAZem 5 MG/ML SDV 10 MG IV (21:09)
[2018-04-08 21:11] LABS: Reflexed Lactate in 2 Hours Y
== END 2018-04-08 23:14 | disposition short-term general hospital (02) ==
PROVIDERS: Emergency Medicine; Emergency Provider Emergency Medicine; Family Provider Physician Assistant; PCP Physician Assistant
DX: K83.09 Other cholangitis (principal); A41.9 Sepsis, unspecified organism
CPT/HCPCS: 36415; 36591; 70450; 71045; 74177; 76700; 80053; 81003; 83605; 83615; 83690; 84145; 85025; 85610; 85730; 87040; 93005; 96361; 96365; 96366; 96367; 96375; 96376; 99285; J0743; J1956; Q9967